=== PATIENT | female | born 1940 ===

== ENCOUNTER 2018-07-23 19:44 | Inpatient (IN) | payer MEDICARE, MEDICAID ==
[~2018-07-23] VITALS: Ht 162.6 cm; Wt 57.6 kg
[2018-07-23] MEDS ORDERED: METF-440 PO ×2 (20:08)
[2018-07-23] MEDS ORDERED: MULT-465 PO (20:08)
[2018-07-23] MEDS ORDERED: CALC-895 PO (20:08)
[2018-07-23] MEDS ORDERED: OLME5TAB3 PO (20:08)
[2018-07-23] MEDS ORDERED: MAGN400O6 PO (20:08)
[2018-07-23] MEDS ORDERED: MEMA10TA PO (20:08)
[2018-07-23] MEDS ORDERED: GLUC15006 PO (20:08)
[2018-07-23] MEDS ORDERED: DEXT15DR6 OP (20:08)
[2018-07-23] MEDS ORDERED: AMLO5TAB4 PO (20:08)
[2018-07-23] MEDS ORDERED: RIVA3CAP5 PO (20:08)
[2018-07-23] MEDS ORDERED: BETA1TAB19 PO (20:08)
[2018-07-23] MEDS ORDERED: DOCU-141 PO (20:08)
[2018-07-23] MEDS ORDERED: ATOR20TA PO (20:08)
[2018-07-23] MEDS ORDERED: ESCI10TA PO (20:08)
[2018-07-23] MEDS ORDERED: ACET325T53 PO (20:08)
[2018-07-23] MEDS ORDERED: QUET25TA PO (20:08)
[2018-07-23] MEDS ORDERED: CLON0.5T PO (20:08)
[2018-07-23 20:28] LABS: BASOPHILS % (AUTO) 0.6 % (0.0-2.0); EOSINOPHILS # (AUTO) 0.1 K/uL (0.0-0.7); EOSINOPHILS % (AUTO) 1.4 % (0.0-7.0); HEMATOCRIT 35.3 % (31.2-41.9); HEMOGLOBIN 11.7 g/dL (10.9-14.3); LYMPHOCYTES % (AUTO) 31.5 % (20.5-51.5); MEAN CORPUSCULAR HEMOGLOBIN 30.1 uug (24.7-32.8); MEAN CORPUSCULAR HGB CONC 33 g/dL (32.3-35.6); MEAN CORPUSCULAR VOLUME 90.6 fL (75.5-95.3); MONOCYTES # (AUTO) 0.6 K/uL (2.0-10.0); MONOCYTES % (AUTO) 10.1 % (0.0-11.0); NEUTROPHILS # (AUTO) 3.5 K/uL (1.8-8.9); NEUTROPHILS % (AUTO) 56.4 % (38.5-71.5); PLATELET COUNT (AUTO) 242 K/uL (179-408); WHITE BLOOD COUNT (AUTO) 6.3 K/uL (3.8-11.8)
[2018-07-23 20:32] LABS: CARBON DIOXIDE 28 mmol/L (21-32); CHLORIDE 100 mmol/L (98-107); CREATININE 0.9 mg/dL (0.6-1.3); GLUCOSE 75 mg/dL (74-106); POTASSIUM 4.6 mmol/L (3.5-5.1); UREA NITROGEN, BLOOD 25 mg/dL (7-18)
[2018-07-23 20:37] LABS: ALANINE AMINOTRANSFERASE 43 U/L (14-59); ALKALINE PHOSPHATASE 78 U/L (50-136); ASPARTATE AMINOTRANSFERASE 21 U/L (15-37); BILIRUBIN,DIRECT 0.1 mg/dL (0.0-0.2); BILIRUBIN,TOTAL 0.4 mg/dL (0.2-1.0); TOTAL PROTEIN, SERUM 7.6 g/dL (6.4-8.2)
[2018-07-23 20:38] LABS: ACETAMINOPHEN < 2.0 ug/mL (10-30)
--- NOTE | 2018-07-23 20:41 | NUR ---
Sitter at bedside
[2018-07-23 20:44] LABS: ETHANOL < 3 MG/DL (0-0)
[2018-07-23 20:54] LABS: *BILIRUBIN,URIN NEGATIVE (NEGATIVE); *BLOOD, URINE Trace-lysed (NEGATIVE); *CLARITY,URINE CLEAR (CLEAR); *COLOR,URINE YELLOW (YELLOW); *KETONES,URINE NEGATIVE (NEGATIVE); *UROBILINOGEN,URINE 0.2 E.U./dl (NORMAL); LEUKOCYTE ESTERASE ,URINE TRACE (NEGATIVE); NITRITE, URINE NEGATIVE (NEGATIVE); UGLUCOSE NEGATIVE (NEGATIVE)
[2018-07-23 20:59] LABS: THYROID STIMULATING HORMONE 1.897 mIU/mL (0.358-3.740)
[2018-07-23 21:02] LABS: SQUAMOUS EPITHELIAL CELL,UR FEW /HPF (NONE SEEN)
[2018-07-23 21:22] LABS: *AMPHETAMINE, URINE NEGATIVE (NEGATIVE); *BARBITURATE, URINE NEGATIVE (NEGATIVE); *CANNABINOID, URINE NEGATIVE (NEGATIVE); *COCCAINE, URINE NEGATIVE (NEGATIVE); *OPIATE, URINE NEGATIVE (NEGATIVE); *PHENCYCLIDINE SCREEN,URINE NEGATIVE (NEGATIVE)
--- NOTE | 2018-07-23 21:29 | NUR ---
Gave report to Lesly
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
[2018-07-23 22:00] VITALS: BP 144/63
[2018-07-23] MEDS ORDERED: LORAZEPAM 1 MG TABLET PO PRN (22:00)
[2018-07-23] MEDS ORDERED: MAGNESIUM HYDROXIDE 30 ML LIQUID UDC PO PRN (22:00)
[2018-07-23] MEDS ORDERED: ZOLPIDEM 5 MG TABLET PO PRN (22:00)
[2018-07-23] MEDS ORDERED: MAG HYDROX/AL HYDROX/SIMETH 30 ML LIQUID UDC PO PRN (22:00)
[2018-07-23] MEDS ORDERED: ACETAMINOPHEN 325 MG TABLET PO PRN (22:00)
[2018-07-24] MEDS ORDERED: MAGNESIUM HYDROXIDE 30 ML LIQUID UDC PO PRN (00:45)
[2018-07-24] MEDS ORDERED: ACETAMINOPHEN 325 MG TABLET PO PRN (00:45)
[2018-07-24 07:30] VITALS: BP 138/58
[2018-07-24] MEDS ORDERED: Medication Not On Formulary EA (Glucosamine Hcl 1,500 MG) PO SCH (09:00)
[2018-07-24] MEDS: AMLODIPINE 5 MG TABLET PO SCH (09:00)
[2018-07-24] MEDS ORDERED: [UNRECOGNIZED DRUG - OTHER] PO SCH (09:00)
[2018-07-24] MEDS ORDERED: OLMESARTAN MEDOXOMIL 5 MG PO SCH (09:00)
[2018-07-24] MEDS: DOCUSATE SODIUM 100 MG CAPSULE PO SCH (09:00)
[2018-07-24] MEDS: CALCIUM CARB/VITAMIN D 600-400 MG TABLET PO SCH (09:00)
[2018-07-24] MEDS: METFORMIN HCL 500 MG TABLET PO SCH ×2 (09:59→17:17)
[2018-07-24] MEDS: VITAMIN B COMPLEX 1 TABLET PO SCH (10:00)
[2018-07-24] MEDS: LOSARTAN POTASSIUM 25 MG TABLET PO SCH (10:01)
[2018-07-24] MEDS: POLYVINYL ALCOHOL OPHT DROPS 15 ML BOTTLE EACHEYE PRN (10:08)
--- NOTE | 2018-07-24 11:14 | NUR ---
Firearms Report: dairy farm worker completed and submitted a [employer] firearms report for a 5150 DTO certification.
--- NOTE | 2018-07-24 12:34 | NUR ---
Initial Discharge Note: Patient is a 78 year old female admitted to [facility]HU. Patient currently is a long-term resident of [facility] [[id number] [place] [address]; ]. Per patient she would like to return to facility when ready for discharge. sand worker called and spoke with Michelle, product safety coordinator, for facility who states patient is welcome back when ready for discharge. sand worker will continue to collaborate with patient, patient family, and MD on a safe and proper discharge.
[2018-07-24 15:00] VITALS: BP 151/79
--- NOTE | 2018-07-24 17:21 | NUR ---
received patient asleep on bed, patient able to verbalize her needs, patient alert and oriented x4, compliant with care and medicine, however she refuse to take the pm dose of metformin since she said the dose might be too high, patient VS is stable no reported distress at this time.
[2018-07-24] MEDS: ATORVASTATIN 20 MG TABLET PO SCH (20:01)
[2018-07-24] MEDS: BETA CAROTENE/VIT C & E/MIN TABLET PO SCH (20:01)
[2018-07-24 20:27] VITALS: BP 124/71
[2018-07-24] MEDS: risperiDONE 0.5 MG TABLET PO SCH (20:32)
[2018-07-24] MEDS: MIRTAZAPINE 15 MG TABLET PO SCH (20:32)
[2018-07-24] MEDS: DIVALPROEX 250 MG TABLET.DR PO SCH (20:32)
[2018-07-24] MEDS ORDERED: DEXTROSE 50% 50 ML DISP.SYRIN IV PRN (23:30)
[2018-07-25] MEDS: BLOOD SUGAR DIAGNOSTIC 1 EACH STRIP VI SCH ×4 (06:36→20:42)
--- NOTE | 2018-07-25 06:37 | NUR ---
Received pt in bed, AAO x 3, no acute distress noted. No complaints of pain or discomfort throughout shift. Noted with guarded behavior at beginning of shift but compliant with care and medications, though noted with some fearfulness about medication. Education provided as well as any ASE, patient verbalized understanding. All due medications given as ordered, tolerated well. BS checked this AM noted to be 110. Patient noted to look more rested, smiling with better mood. Safety maintained. Fall precautions maintained. Will continue to monitor. Will endorse accordingly to oncoming shift.
[2018-07-25 07:56] VITALS: BP 135/75
[2018-07-25 08:04] VITALS: BP 135/75
[2018-07-25] MEDS: DOCUSATE SODIUM 100 MG CAPSULE PO SCH (08:42)
[2018-07-25] MEDS: DIVALPROEX 250 MG TABLET.DR PO SCH ×2 (08:43→20:35)
[2018-07-25] MEDS: METFORMIN HCL 500 MG TABLET PO SCH ×2 (08:43→17:28)
[2018-07-25] MEDS: risperiDONE 0.5 MG TABLET PO SCH ×2 (08:43→20:36)
[2018-07-25] MEDS: CALCIUM CARB/VITAMIN D 600-400 MG TABLET PO SCH (08:43)
[2018-07-25] MEDS: LOSARTAN POTASSIUM 25 MG TABLET PO SCH (08:44)
[2018-07-25] MEDS: AMLODIPINE 5 MG TABLET PO SCH (08:44)
[2018-07-25] MEDS: VITAMIN B COMPLEX 1 TABLET PO SCH (08:45)
--- NOTE | 2018-07-25 13:27 | NUR ---
GPS: Nursing Notes: Regarding: Glucosamine HCL: Staff spoke with patient's daughter, Christie regarding Glucosamine, per daughter, she is going to bring the supplement on next visit to the hospital, informed pharmacist, Maricruz, continue to monitor patient, continue with treatment plan.
[2018-07-25 16:00] VITALS: BP 140/69
[2018-07-25] MEDS ORDERED: LORAZEPAM 0.5 MG TABLET PO PRN (16:00)
[2018-07-25 20:00] VITALS: BP 107/55
[2018-07-25] MEDS: ATORVASTATIN 20 MG TABLET PO SCH (20:35)
[2018-07-25] MEDS: BETA CAROTENE/VIT C & E/MIN TABLET PO SCH (20:35)
[2018-07-25] MEDS: MIRTAZAPINE 15 MG TABLET PO SCH (20:36)
--- NOTE | 2018-07-26 00:12 | NUR ---
2100 Recieved pt report from am shift. A/0 x4 speaks Bisayan translated via telephone. Denies of any distress. Accu check done 146 No coverage given. V/s wnl. ambulating in h/w without production administrative assistant gait is stable. Complaint with her hs medications.
[2018-07-26] MEDS: BLOOD SUGAR DIAGNOSTIC 1 EACH STRIP VI SCH ×4 (06:32→20:03)
--- NOTE | 2018-07-26 06:44 | NUR ---
Awake this am blood sugar 125 denies of any distress slept 7.3 hr during the shift
[2018-07-26 07:30] VITALS: BP 98/62
[2018-07-26] MEDS: METFORMIN HCL 500 MG TABLET PO SCH ×2 (08:07→17:14)
[2018-07-26] MEDS: DOCUSATE SODIUM 100 MG CAPSULE PO SCH (08:07)
[2018-07-26] MEDS: CALCIUM CARB/VITAMIN D 600-400 MG TABLET PO SCH (08:07)
[2018-07-26] MEDS: risperiDONE 0.5 MG TABLET PO SCH ×2 (08:08→20:03)
[2018-07-26] MEDS: AMLODIPINE 5 MG TABLET PO SCH (08:08)
[2018-07-26] MEDS: DIVALPROEX 250 MG TABLET.DR PO SCH ×2 (08:08→20:04)
[2018-07-26] MEDS: LOSARTAN POTASSIUM 25 MG TABLET PO SCH ×2 (08:08→08:17)
[2018-07-26] MEDS: VITAMIN B COMPLEX 1 TABLET PO SCH (08:11)
[2018-07-26 15:52] VITALS: BP 135/76
[2018-07-26 19:58] VITALS: BP 110/64
[2018-07-26] MEDS: MIRTAZAPINE 15 MG TABLET PO SCH (20:03)
[2018-07-26] MEDS: BETA CAROTENE/VIT C & E/MIN TABLET PO SCH (20:03)
[2018-07-26] MEDS: ATORVASTATIN 20 MG TABLET PO SCH (20:04)
[2018-07-27] MEDS: BLOOD SUGAR DIAGNOSTIC 1 EACH STRIP VI SCH ×4 (06:22→20:06)
[2018-07-27 07:45] VITALS: BP 125/57
[2018-07-27] MEDS: CALCIUM CARB/VITAMIN D 600-400 MG TABLET PO SCH (08:15)
[2018-07-27] MEDS: risperiDONE 0.5 MG TABLET PO SCH ×2 (08:16→20:05)
[2018-07-27] MEDS: DIVALPROEX 250 MG TABLET.DR PO SCH ×2 (08:16→20:05)
[2018-07-27] MEDS: METFORMIN HCL 500 MG TABLET PO SCH ×2 (08:16→17:18)
[2018-07-27] MEDS: DOCUSATE SODIUM 100 MG CAPSULE PO SCH (08:16)
[2018-07-27] MEDS: VITAMIN B COMPLEX 1 TABLET PO SCH (08:16)
[2018-07-27] MEDS: AMLODIPINE 5 MG TABLET PO SCH (08:16)
[2018-07-27] MEDS: LOSARTAN POTASSIUM 25 MG TABLET PO SCH (08:17)
[2018-07-27 16:55] VITALS: BP 148/59
[2018-07-27] MEDS: MIRTAZAPINE 15 MG TABLET PO SCH (20:05)
[2018-07-27] MEDS: BETA CAROTENE/VIT C & E/MIN TABLET PO SCH (20:05)
[2018-07-27] MEDS: ATORVASTATIN 20 MG TABLET PO SCH (20:05)
[2018-07-27 20:13] VITALS: BP 108/58
[2018-07-28] MEDS: BLOOD SUGAR DIAGNOSTIC 1 EACH STRIP VI SCH ×4 (06:34→21:09)
[2018-07-28 07:30] VITALS: BP 117/67
[2018-07-28] MEDS: risperiDONE 0.5 MG TABLET PO SCH ×2 (08:12→20:59)
[2018-07-28] MEDS: AMLODIPINE 5 MG TABLET PO SCH (08:12)
[2018-07-28] MEDS: DOCUSATE SODIUM 100 MG CAPSULE PO SCH (08:12)
[2018-07-28] MEDS: METFORMIN HCL 500 MG TABLET PO SCH ×2 (08:12→17:04)
[2018-07-28] MEDS: LOSARTAN POTASSIUM 25 MG TABLET PO SCH (08:12)
[2018-07-28] MEDS: CALCIUM CARB/VITAMIN D 600-400 MG TABLET PO SCH (08:13)
[2018-07-28] MEDS: DIVALPROEX 250 MG TABLET.DR PO SCH ×2 (08:13→21:00)
[2018-07-28] MEDS: VITAMIN B COMPLEX 1 TABLET PO SCH (08:52)
[2018-07-28] MEDS ORDERED: GLUCOSAMINE SULFATE 1000 MG PO SCH (13:15)
[2018-07-28 16:00] VITALS: BP 100/62
[2018-07-28 20:08] VITALS: BP 105/42
[2018-07-28] MEDS: BETA CAROTENE/VIT C & E/MIN TABLET PO SCH (20:59)
[2018-07-28] MEDS: ATORVASTATIN 20 MG TABLET PO SCH (20:59)
[2018-07-28] MEDS: MIRTAZAPINE 15 MG TABLET PO SCH (21:00)
[2018-07-29] MEDS: BLOOD SUGAR DIAGNOSTIC 1 EACH STRIP VI SCH ×2 (06:36→16:40)
[2018-07-29 07:07] LABS: *BILIRUBIN,URIN NEGATIVE (NEGATIVE); *BLOOD, URINE NEGATIVE (NEGATIVE); *CLARITY,URINE CLEAR (CLEAR); *COLOR,URINE YELLOW (YELLOW); *KETONES,URINE NEGATIVE (NEGATIVE); *UROBILINOGEN,URINE 0.2 E.U./dl (NORMAL); LEUKOCYTE ESTERASE ,URINE NEGATIVE (NEGATIVE); NITRITE, URINE NEGATIVE (NEGATIVE); UGLUCOSE NEGATIVE (NEGATIVE)
[2018-07-29 07:30] VITALS: BP 104/59
[2018-07-29 07:32] LABS: BASOPHILS % (AUTO) 0.5 % (0.0-2.0); EOSINOPHILS # (AUTO) 0.1 K/uL (0.0-0.7); EOSINOPHILS % (AUTO) 2.6 % (0.0-7.0); HEMATOCRIT 35.5 % (31.2-41.9); HEMOGLOBIN 12.1 g/dL (10.9-14.3); LYMPHOCYTES # (AUTO) 1.9 K/uL (20.0-40.0); LYMPHOCYTES % (AUTO) 36.7 % (20.5-51.5); MEAN CORPUSCULAR HEMOGLOBIN 30.1 uug (24.7-32.8); MEAN CORPUSCULAR HGB CONC 34 g/dL (32.3-35.6); MEAN CORPUSCULAR VOLUME 88.7 fL (75.5-95.3); MONOCYTES # (AUTO) 0.5 K/uL (2.0-10.0); MONOCYTES % (AUTO) 8.9 % (0.0-11.0); NEUTROPHILS # (AUTO) 2.7 K/uL (1.8-8.9); NEUTROPHILS % (AUTO) 51.3 % (38.5-71.5); PLATELET COUNT (AUTO) 265 K/uL (179-408); WHITE BLOOD COUNT (AUTO) 5.3 K/uL (3.8-11.8)
[2018-07-29 07:50] LABS: CARBON DIOXIDE 28 mmol/L (21-32); CHLORIDE 100 mmol/L (98-107); CREATININE 0.8 mg/dL (0.6-1.3); GLUCOSE 99 mg/dL (74-106); POTASSIUM 4.3 mmol/L (3.5-5.1); UREA NITROGEN, BLOOD 19 mg/dL (7-18)
[2018-07-29] MEDS: CALCIUM CARB/VITAMIN D 600-400 MG TABLET PO SCH (08:17)
[2018-07-29] MEDS: risperiDONE 0.5 MG TABLET PO SCH (08:17)
[2018-07-29] MEDS: METFORMIN HCL 500 MG TABLET PO SCH ×2 (08:17→17:25)
[2018-07-29] MEDS: GLUCOSAMINE SULFATE 1000 MG PO SCH (08:17)
[2018-07-29] MEDS: DIVALPROEX 250 MG TABLET.DR PO SCH ×2 (08:17→20:37)
[2018-07-29] MEDS: VITAMIN B COMPLEX 1 TABLET PO SCH (08:17)
[2018-07-29] MEDS: DOCUSATE SODIUM 100 MG CAPSULE PO SCH (08:17)
[2018-07-29] MEDS: LOSARTAN POTASSIUM 25 MG TABLET PO SCH (08:18)
[2018-07-29] MEDS: AMLODIPINE 5 MG TABLET PO SCH (08:18)
[2018-07-29 08:31] LABS: BACTERIA,URINE FEW /HPF (NONE SEEN); RBC,URINE NONE SEEN /HPF (0-3); SQUAMOUS EPITHELIAL CELL,UR FEW /HPF (NONE SEEN); WBC,URINE 0-3 /HPF (0-3)
[2018-07-29] MEDS ORDERED: DEXTROSE 50% 50 ML DISP.SYRIN IV PRN (09:30)
--- NOTE | 2018-07-29 11:57 | NUR ---
Activity group note: Patients were asked to answer the question of "What is one thing you would change about yourself and why? Subjective: "I have 3 children" "My drinks" Objective: Patient appeared happy to participate in activity and appeared to be attentive to each patient speak in group. Patient appeared to understand what each patient was saying, but there is a language barrier when patient speaks as patient [place] language is Tagalog. Assessment: Patient needs help with expressing self and speech being understood Plan: Encourage group attendance as scheduled. bunker worker will help patient be able to express self better by utilizing a translation service such as [employer].
[2018-07-29 16:00] VITALS: BP 120/69
[2018-07-29 19:57] VITALS: BP 134/68
[2018-07-29] MEDS: MIRTAZAPINE 15 MG TABLET PO SCH (20:36)
[2018-07-29] MEDS: risperiDONE 0.25 MG TABLET PO SCH (20:36)
[2018-07-29] MEDS: BETA CAROTENE/VIT C & E/MIN TABLET PO SCH (20:36)
[2018-07-29] MEDS: ATORVASTATIN 20 MG TABLET PO SCH (20:37)
[2018-07-30] MEDS: BLOOD SUGAR DIAGNOSTIC 1 EACH STRIP VI SCH ×2 (06:45→16:39)
[2018-07-30 07:30] VITALS: BP 110/51
[2018-07-30] MEDS: DIVALPROEX 250 MG TABLET.DR PO SCH ×2 (08:20→20:58)
[2018-07-30] MEDS: CALCIUM CARB/VITAMIN D 600-400 MG TABLET PO SCH (08:21)
[2018-07-30] MEDS: DOCUSATE SODIUM 100 MG CAPSULE PO SCH (08:21)
[2018-07-30] MEDS: risperiDONE 0.25 MG TABLET PO SCH ×2 (08:21→20:57)
[2018-07-30] MEDS: METFORMIN HCL 500 MG TABLET PO SCH ×2 (08:21→17:23)
[2018-07-30] MEDS: VITAMIN B COMPLEX 1 TABLET PO SCH (08:22)
[2018-07-30] MEDS: GLUCOSAMINE SULFATE 1000 MG PO SCH (08:22)
[2018-07-30] MEDS: AMLODIPINE 5 MG TABLET PO SCH (08:25)
[2018-07-30] MEDS: LOSARTAN POTASSIUM 25 MG TABLET PO SCH (08:26)
--- NOTE | 2018-07-30 15:02 | NUR ---
Gps/Tufting Machine Operator Single Needle- Patient stayed in her group therapy, was informed its' her birthday , patient smiling ,needing min. prompting to stay in her group therapy.
[2018-07-30 16:00] VITALS: BP 122/71
[2018-07-30 20:00] VITALS: BP 121/62
[2018-07-30] MEDS: ATORVASTATIN 20 MG TABLET PO SCH (20:57)
[2018-07-30] MEDS: MIRTAZAPINE 15 MG TABLET PO SCH (20:57)
[2018-07-30] MEDS: BETA CAROTENE/VIT C & E/MIN TABLET PO SCH (20:57)
[2018-07-31] MEDS: BLOOD SUGAR DIAGNOSTIC 1 EACH STRIP VI SCH ×2 (07:04→16:31)
[2018-07-31 07:30] VITALS: BP 124/67
[2018-07-31] MEDS: METFORMIN HCL 500 MG TABLET PO SCH ×2 (08:10→17:23)
[2018-07-31] MEDS: DOCUSATE SODIUM 100 MG CAPSULE PO SCH (08:10)
[2018-07-31] MEDS: DIVALPROEX 250 MG TABLET.DR PO SCH ×2 (08:10→20:58)
[2018-07-31] MEDS: risperiDONE 0.25 MG TABLET PO SCH (08:10)
[2018-07-31] MEDS: CALCIUM CARB/VITAMIN D 600-400 MG TABLET PO SCH (08:10)
[2018-07-31] MEDS: LOSARTAN POTASSIUM 25 MG TABLET PO SCH (08:11)
[2018-07-31] MEDS: AMLODIPINE 5 MG TABLET PO SCH (08:11)
[2018-07-31] MEDS: VITAMIN B COMPLEX 1 TABLET PO SCH (08:12)
[2018-07-31] MEDS: GLUCOSAMINE SULFATE 1000 MG PO SCH (08:12)
--- NOTE | 2018-07-31 12:50 | NUR ---
Gps/Dry Man- Patient's daughter in to visit, brought food from home , as well as clean clothes. Unable to list all clothes at this pont, r/t daughter comes in to visit everyday and takes home dirty clothes to home to washed and bring diff.clean clothes. Clothes/underwears, socks was put inside the locker, not in the pt's room , per daughter they disappear.
--- NOTE | 2018-07-31 16:33 | NUR ---
Gps/Computer Network And Systems Engineer- Noticed patient still noted, talking to self, does not want the lights on, encouraged to attend her group tx.
[2018-07-31 16:47] VITALS: BP 122/48
--- NOTE | 2018-07-31 17:30 | NUR ---
Gps/Hull Outfit Supervisor- Per Dr Calzada patient will be ok to discharge by friday, back to SNF.
[2018-07-31 20:36] VITALS: BP 110/58
[2018-07-31] MEDS: BETA CAROTENE/VIT C & E/MIN TABLET PO SCH (20:58)
[2018-07-31] MEDS: risperiDONE 1 MG TABLET PO SCH (20:58)
[2018-07-31] MEDS: ATORVASTATIN 20 MG TABLET PO SCH (20:58)
[2018-07-31] MEDS: MIRTAZAPINE 15 MG TABLET PO SCH (20:58)
--- NOTE | 2018-07-31 21:47 | NUR ---
resting in bed when received in good spirits compliant with her care and medications. no acute distress noted. took meds without difficulty. no signs of agitation or aggresiveness. calm and cooperative. continent of bowel and bladder. needs attended. will monitor patient. Possible discharge to facility on friday. VSS.
[2018-08-01] MEDS: BLOOD SUGAR DIAGNOSTIC 1 EACH STRIP VI SCH ×2 (06:31→17:22)
--- NOTE | 2018-08-01 06:50 | NUR ---
slept most of th shift. slept for 8 hours. no signs of aggressiveness or agitation noted. in good spirits. compliant with meds and care. accucheck 80. needs attended. will monitor patient
[2018-08-01 07:30] VITALS: BP 108/81
[2018-08-01] MEDS: CALCIUM CARB/VITAMIN D 600-400 MG TABLET PO SCH (08:27)
[2018-08-01] MEDS: LOSARTAN POTASSIUM 25 MG TABLET PO SCH (08:27)
[2018-08-01] MEDS: GLUCOSAMINE SULFATE 1000 MG PO SCH (08:27)
[2018-08-01] MEDS: POLYVINYL ALCOHOL OPHT DROPS 15 ML BOTTLE EACHEYE PRN (08:27)
[2018-08-01] MEDS: VITAMIN B COMPLEX 1 TABLET PO SCH (08:27)
[2018-08-01] MEDS: AMLODIPINE 5 MG TABLET PO SCH (08:28)
[2018-08-01] MEDS: METFORMIN HCL 500 MG TABLET PO SCH ×2 (08:28→17:16)
[2018-08-01] MEDS: DIVALPROEX 250 MG TABLET.DR PO SCH ×2 (08:28→20:59)
[2018-08-01] MEDS: risperiDONE 1 MG TABLET PO SCH ×2 (08:28→20:59)
[2018-08-01] MEDS: DOCUSATE SODIUM 100 MG CAPSULE PO SCH (08:34)
[2018-08-01 16:00] VITALS: BP 112/59
[2018-08-01 20:00] VITALS: BP 132/62
[2018-08-01] MEDS: BETA CAROTENE/VIT C & E/MIN TABLET PO SCH (20:59)
[2018-08-01] MEDS: ATORVASTATIN 20 MG TABLET PO SCH (20:59)
[2018-08-01] MEDS: MIRTAZAPINE 15 MG TABLET PO SCH (20:59)
[2018-08-02] MEDS: BLOOD SUGAR DIAGNOSTIC 1 EACH STRIP VI SCH ×2 (06:34→17:09)
--- NOTE | 2018-08-02 06:35 | NUR ---
Received Pt walking in the hallway, responding to internal stimuli. Pt was speaking very quietly to herself, and when asked what she was saying, Pt stopped and stared blankly, then asked for water. Presents with low mood, constricted affect, and thought blocking. Compliant with medications, cooperative with staff direction. VS stable, denies pain, A+Ox3, in no apparent physical distress. AM BS 93. Slept 7.5 hours.
[2018-08-02 07:30] VITALS: BP 108/57
[2018-08-02] MEDS: METFORMIN HCL 500 MG TABLET PO SCH ×2 (08:42→18:15)
[2018-08-02] MEDS: DIVALPROEX 250 MG TABLET.DR PO SCH ×2 (08:42→20:24)
[2018-08-02] MEDS: DOCUSATE SODIUM 100 MG CAPSULE PO SCH (08:42)
[2018-08-02] MEDS: risperiDONE 1 MG TABLET PO SCH ×2 (08:42→20:24)
[2018-08-02] MEDS: CALCIUM CARB/VITAMIN D 600-400 MG TABLET PO SCH (08:42)
[2018-08-02] MEDS: LOSARTAN POTASSIUM 25 MG TABLET PO SCH (08:43)
[2018-08-02] MEDS: AMLODIPINE 5 MG TABLET PO SCH (08:46)
[2018-08-02] MEDS: GLUCOSAMINE SULFATE 1000 MG PO SCH (08:47)
[2018-08-02] MEDS: VITAMIN B COMPLEX 1 TABLET PO SCH (08:48)
[2018-08-02 15:22] VITALS: BP 145/69
[2018-08-02 20:00] VITALS: BP 120/63
[2018-08-02] MEDS: BETA CAROTENE/VIT C & E/MIN TABLET PO SCH (20:24)
[2018-08-02] MEDS: MIRTAZAPINE 15 MG TABLET PO SCH (20:24)
[2018-08-02] MEDS: ATORVASTATIN 20 MG TABLET PO SCH (20:24)
--- NOTE | 2018-08-03 06:27 | NUR ---
No overnight events, no combative or aggressive behaviors. AM BS 80. Pending d/c today back to [facility]. In no acute physical distress.
[2018-08-03] MEDS: BLOOD SUGAR DIAGNOSTIC 1 EACH STRIP VI SCH ×2 (06:30→16:45)
[2018-08-03 07:30] VITALS: BP 128/78
[2018-08-03] MEDS: VITAMIN B COMPLEX 1 TABLET PO SCH (08:15)
[2018-08-03] MEDS: GLUCOSAMINE SULFATE 1000 MG PO SCH (08:15)
[2018-08-03] MEDS: CALCIUM CARB/VITAMIN D 600-400 MG TABLET PO SCH (08:16)
[2018-08-03] MEDS: risperiDONE 1 MG TABLET PO SCH ×2 (08:16→20:34)
[2018-08-03] MEDS: DIVALPROEX 250 MG TABLET.DR PO SCH ×2 (08:16→20:34)
[2018-08-03] MEDS: DOCUSATE SODIUM 100 MG CAPSULE PO SCH (08:16)
[2018-08-03] MEDS: METFORMIN HCL 500 MG TABLET PO SCH ×2 (08:16→17:09)
[2018-08-03] MEDS: AMLODIPINE 5 MG TABLET PO SCH (08:16)
[2018-08-03] MEDS: LOSARTAN POTASSIUM 25 MG TABLET PO SCH (08:17)
[2018-08-03 15:29] VITALS: BP 102/50
[2018-08-03 20:00] VITALS: BP 123/68
[2018-08-03] MEDS: ATORVASTATIN 20 MG TABLET PO SCH (20:34)
[2018-08-03] MEDS: MIRTAZAPINE 15 MG TABLET PO SCH (20:34)
[2018-08-03] MEDS: BETA CAROTENE/VIT C & E/MIN TABLET PO SCH (20:34)
--- NOTE | 2018-08-04 06:17 | NUR ---
Remans calm and compliant, no aggressive or combative behaviors during shift. AM BS 75.
[2018-08-04] MEDS: BLOOD SUGAR DIAGNOSTIC 1 EACH STRIP VI SCH (06:46)
[2018-08-04 07:30] VITALS: BP 102/61
[2018-08-04] MEDS: CALCIUM CARB/VITAMIN D 600-400 MG TABLET PO SCH (08:27)
[2018-08-04] MEDS: DOCUSATE SODIUM 100 MG CAPSULE PO SCH (08:27)
[2018-08-04] MEDS: risperiDONE 1 MG TABLET PO SCH (08:27)
[2018-08-04] MEDS: DIVALPROEX 250 MG TABLET.DR PO SCH (08:27)
[2018-08-04] MEDS: METFORMIN HCL 500 MG TABLET PO SCH (08:27)
[2018-08-04] MEDS: AMLODIPINE 5 MG TABLET PO SCH (08:28)
[2018-08-04 08:29] VITALS: BP 102/61
[2018-08-04] MEDS: LOSARTAN POTASSIUM 25 MG TABLET PO SCH (08:29)
[2018-08-04] MEDS: VITAMIN B COMPLEX 1 TABLET PO SCH (08:30)
[2018-08-04] MEDS: GLUCOSAMINE SULFATE 1000 MG PO SCH (08:30)
--- NOTE | 2018-08-04 09:50 | NUR ---
DISCHARGE NOTE: Patient will be discharged back to her long-term residence, [facility] [[address] [place] [address]; ] via ambulance transportation at 12:00pm. Please arrange ambulance transportation for this patient. explosives worker called and spoke with patients daughterChristie [[phone]] who is aware and agreeable with discharge plans. Patient is alert and oriented x2-3, denies SI/HI, and is aware and agreeable with discharge plans. Patient will follow-up with Dr. Tucker (Furnace Reliner) and Dr. Zimmer (psychiatrist). Patient has been provided with outpatient mental health resources to [facility] [ ], [facility] [ ], and the National Suicide Prevention Lifeline [ ].
--- NOTE | 2018-08-04 14:37 | NUR ---
1130 Called [facility],SNF spoke with Dorita. DEISY and admiting nurse , report givenregarding patient will be discharge back to [facility] facility, informed medications to continue upon hospital discharge patient mental and medical condition- stable. 1400 Patient discharged to SNF, picked up by ambulance , patient alert and ox3. enies SI HI no delusio. no a/v hallucination noted
== END 2018-08-04 14:00 | DRG 885 ==
LOC: ER 19:47 → GPS 21:36
PROVIDERS: ADMIT Psychiatry & Neurology Psychiatry; ATTEND Nurse Practitioner Acute Care
DX: F31.9 Bipolar disorder, unspecified (principal); E44.1 Mild protein-calorie malnutrition; E87.1 Hypo-osmolality and hyponatremia; E78.5 Hyperlipidemia, unspecified; I25.10 Atherosclerotic heart disease of native coronary artery without angina pectoris; E11.9 Type 2 diabetes mellitus without complications; Z79.84 Long term (current) use of oral hypoglycemic drugs; Z68.21 Body mass index [BMI] 21.0-21.9, adult; M81.0 Age-related osteoporosis without current pathological fracture; M19.90 Unspecified osteoarthritis, unspecified site; Z79.899 Other long term (current) drug therapy; I10 Essential (primary) hypertension; F03.90 Unspecified dementia, unspecified severity, without behavioral disturbance, psychotic disturbance, mood disturbance, and anxiety; E86.0 Dehydration; R79.89 Other specified abnormal findings of blood chemistry
CPT/HCPCS: 36415; 80307; 84443; 85025; 87086; 93005; A4663; G0480; G0480-TC; J3490